=== PATIENT | male | born 1970 | race Caucasian/White ===

== ENCOUNTER 2020-05-25 12:12 | Emergency (ER) | payer SELFPAY ==
[2020-05-25 12:29] VITALS: BP 140/72; PULSE 91; TEMP 98.1; BMI 22.1
== END 2020-05-25 14:15 | disposition home or self-care (01) ==
LOC: JERFT 12:12
DX: S62.614A Displaced fracture of proximal phalanx of right ring finger, initial encounter for closed fracture (principal)
CPT/HCPCS: 73140-TC-RT-FY; 99283-25